=== PATIENT | female | born 1995 | race Caucasian/White ===

== ENCOUNTER 2018-07-15 07:18 | Emergency (ER) | payer OTHER ==
[~2018-07-15] VITALS: Ht 165.1 cm; Wt 93.0 kg
[2018-07-15] MEDS ORDERED: KEFLEX500 M1 PO (08:58)
[2018-07-15] MEDS ORDERED: BACTRIM DS TAB1 EACH PO (08:58)
[2018-07-15] MEDS ORDERED: NAPROSYN500 MG PO (08:59)
[2018-07-15 09:24] VITALS: BP 107/55
== END 2018-07-15 09:01 | disposition home or self-care (01) ==
LOC: ER 07:18
DX: L02.31 Cutaneous abscess of buttock (principal); A18.01 Tuberculosis of spine; M41.9 Scoliosis, unspecified; F17.210 Nicotine dependence, cigarettes, uncomplicated